=== PATIENT | male | born 1945 | race Caucasian/White ===

== ENCOUNTER 2021-10-20 08:53 | Outpatient (RCR) | payer OTHER | END 2021-10-27 | LOC: PT 08:53 | PROVIDERS: ATTEND Specialist | DX: M17.12 Unilateral primary osteoarthritis, left knee (principal) ==

== ENCOUNTER → 2022-04-06 | Outpatient (CLI) | payer MEDICARE ==
[~2022-04-06] MED LIST: IOPAMIDOL 370 MG/ML 100 ML INFUS..BTL INJ ONE
[2022-04-06 10:17] LABS: CREATININE, SERUM 0.97 mg/dL (0.72-1.25)
== END ==
LOC: CT 09:16
PROVIDERS: ATTEND Family Medicine
DX: R05.9 Cough, unspecified (principal)
CPT/HCPCS: 36415; 71260; 82565; 84520; Q9967